=== PATIENT | female | born 1990 | race Caucasian/White ===

== ENCOUNTER 2017-05-02 14:50 | Emergency (ER) | payer SELFPAY ==
[~2017-05-02] VITALS: Ht 172.7 cm; Wt 90.8 kg
[2017-05-02] MEDS ORDERED: PREDNISONE20 MG PO (15:09)
[2017-05-02 16:10] VITALS: BP 144/99
== END 2017-05-02 16:12 | disposition home or self-care (01) ==
LOC: EME 14:50
DX: G51.0 Bell's palsy (principal)
CPT/HCPCS: 99281; 99284